=== PATIENT | female | born 1965 | race Two or more races ===

== ENCOUNTER 2018-06-20 08:56 | Outpatient (CLI) | payer OTHER | END 2018-06-20 09:04 | disposition home or self-care (01) | LOC: NUCLEAR 08:56 | DX: I87.2 Venous insufficiency (chronic) (peripheral) (principal) ==

== ENCOUNTER 2019-06-01 09:30 | Outpatient (CLI) | payer OTHER | END 2019-06-01 09:56 | disposition home or self-care (01) | LOC: NUCLEAR 09:30 | DX: I82.492 Acute embolism and thrombosis of other specified deep vein of left lower extremity (principal); I82.409 Acute embolism and thrombosis of unspecified deep veins of unspecified lower extremity ==